=== PATIENT | female | born 1980 | race Caucasian/White ===

== ENCOUNTER 2024-03-24 18:48 | Observation (INO) ==
--- NOTE | 2024-03-24 19:15 | Emergency Department Note ---
History of Present Illness General Chief complaint: Chest Pain Time Seen by Provider: 03/24/24 18:56 Source: patient, family (Colleague who is at the bedside), RN notes reviewed and old records reviewed (09/10/22-history and physical from orthopedics visit) Mode of arrival: ambulatory Limitations: no limitations History of Present Illness This patient is a 43-year-old female who was brought in by ambulance after having chest pain. She noticed a rash on her upper chest and neck an hour or 2 ago and she was going to get it checked out at work when she started having chest tightness between 430 and 5. Its about 5 out of 10 there is no radiation to arm neck or back she does have a headache as well . no nausea or vomiting .she denies any swelling mouth lips or tongue. no sore throat. No difficulty speaking or swallowing. No trauma or injury. She is on no medications there has been no [id number] medications or any other known allergens today. She says she cannot take Claritin and Zyrtec but she is okay with Benadryl but it just makes her sleepy but she does not have allergic reaction to that. No fall or trauma Home Medications Medication Instructions Recorded Confirmed Type No Known Home Medications 03/24/24 03/24/24 History Allergies Allergy/AdvReac Type Severity Reaction Status Date / Time cetirizine [From Zyrtec] Allergy Intermediate Rash Verified 03/24/24 21:22 latex Allergy Intermediate Rash Verified 03/24/24 21:22 loratadine [From Claritin-D] Allergy Intermediate Rash Verified 03/24/24 21:22 pseudoephedrine Allergy Intermediate Rash Verified 03/24/24 21:22 [From Claritin-D] Past Med/Surg History Medical History Slow to wake up after anesthesia Hypertension Asthma rare res inh use Surgical History History of hysterectomy Hx of breast reduction, elective History of colonoscopy History of cholecystectomy [place] teeth extracted History of tonsillectomy History of endoscopic sinus surgery Social History Smoking Status: Former smoker Cigarettes Per Day: does not use daily; Second Hand Exposure: No; Do You Dip or Chew Tobacco: No; Hx Alcohol Use: Yes Alcohol type: beer, wine and hard liquor Hx Substance Use: No Preferred Language: Nepali Communication Ability: Effective Professional Nursing Assistant Required: No Beliefs That Will Affect Care: None Current Living Situation: Family Feels Safe at Home: Yes Assistive Devices: Contacts and Glasses Immunizations: Past medical historyshe does have a history of hypertension. She is on no medications. She says they took her off 2 years ago because her blood pressure was getting too low. Review of Systems A total of 10 systems reviewed and were otherwise negative Physical Exam Vital Signs Vital Signs - 24 hr 03/24/24 18:53 03/24/24 18:56 03/24/24 19:05 Temperature Temperature Source Pulse Rate 75 68 Pulse Rate from SpO2 Sensor Pulse Rhythm Respiratory Rate 18 Respiratory Effort / Characteristics Short of Breath Blood Pressure 253/159 H Blood Pressure Mean 190 Pulse Oximetry 98 Oxygen Delivery Method Room Air Sepsis Recent Fever Within 48 Hours Sepsis New/Unexplained Change in Mental Status Sepsis Action Taken by Nursing 03/24/24 19:05 03/24/24 19:07 03/24/24 19:09 Temperature 36.5 C Temperature Source Oral Pulse Rate 65 74 68 Pulse Rate from SpO2 Sensor 71 66 Pulse Rhythm Respiratory Rate 15 17 15 Respiratory Effort / Characteristics Blood Pressure 253/149 H 99/61 L Blood Pressure Mean 183 73 Pulse Oximetry 96 97 96 Oxygen Delivery Method Room Air Room Air Room Air Sepsis Recent Fever Within 48 Hours No Sepsis New/Unexplained Change in Mental Status No Sepsis Action Taken by Nursing No Action Required 03/24/24 19:13 03/24/24 19:35 03/24/24 20:00 Temperature Temperature Source Pulse Rate 82 61 64 Pulse Rate from SpO2 Sensor 64 Pulse Rhythm Regular Respiratory Rate 20 18 13 Respiratory Effort / Characteristics Blood Pressure 209/129 H 233/122 H Blood Pressure Mean 155 159 Pulse Oximetry 98 98 97 Oxygen Delivery Method Room Air Room Air Room Air Sepsis Recent Fever Within 48 Hours Sepsis New/Unexplained Change in Mental Status Sepsis Action Taken by Nursing 03/24/24 20:03 03/24/24 20:38 03/24/24 21:18 Temperature Temperature Source Pulse Rate 65 64 64 Pulse Rate from SpO2 Sensor 64 64 62 Pulse Rhythm Respiratory Rate 18 20 20 Respiratory Effort / Characteristics Blood Pressure 213/146 H Blood Pressure Mean 168 Pulse Oximetry 99 98 93 Oxygen Delivery Method Room Air Sepsis Recent Fever Within 48 Hours Sepsis New/Unexplained Change in Mental Status Sepsis Action Taken by Nursing 03/24/24 21:30 03/24/24 22:07 03/24/24 22:30 Temperature Temperature Source Pulse Rate 75 60 62 Pulse Rate from SpO2 Sensor 64 64 Pulse Rhythm Respiratory Rate 17 18 17 Respiratory Effort / Characteristics Blood Pressure 172/133 H 206/135 H 187/132 H Blood Pressure Mean 146 158 150 Pulse Oximetry 96 96 95 Oxygen Delivery Method Room Air Room Air Room Air Sepsis Recent Fever Within 48 Hours Sepsis New/Unexplained Change in Mental Status Sepsis Action Taken by Nursing 03/24/24 22:53 03/24/24 23:00 03/25/24 00:30 Temperature Temperature Source Pulse Rate 64 60 68 Pulse Rate from SpO2 Sensor 60 Pulse Rhythm Respiratory Rate 18 20 Respiratory Effort / Characteristics Blood Pressure 191/127 H 217/120 H Blood Pressure Mean 148 152 Pulse Oximetry 96 98 Oxygen Delivery Method Room Air Room Air Sepsis Recent Fever Within 48 Hours Sepsis New/Unexplained Change in Mental Status Sepsis Action Taken by Nursing General: Well developed well nourished middle-age female who appears in no acute distress, breathing comfortably on room air. Normal speech not muffled. HEENT: Normal cephalic atraumatic. Pupils are equal round and reactive to light. Extraocular movements are intact. Oropharynx is pink with moist mucous membranes. No swelling of the mouth lips or tongue. No swelling the mouth lips or tongue. Posterior oropharynx is wide open. No stridor. No drooling. Neck: Supple with a midline trachea. No meningeal signs or stiffness, no JVD or bruits. No Stridor. Chest: Clear to auscultation bilaterally. No wheezes or rhonchi. No increased work of breathing. Heart: Regular rate and rhythm without murmurs or gallops. Abdomen: Soft nontender, nondistended without rebound guarding or rigidity. Extremities: No cyanosis clubbing or edema. No calf tenderness or assymetry Spine/Back. Non tender to palpation. No CVA tenderness Skin: Good turgor. She has a diffuse garcia. She has some red circular areas in her upper chest and around her neck. There are none on her back or abdomen or face. They appear to be itching Neurologic exam: Cranial nerves two through 12 are intact. Motor and sensation are intact and symmetrical throughout. General: Well developed well nourished in no acute distress, breathing comfortably on room air. Normal speech Course Administered Medications Lactated Ringer's (Lr) 1,000 mls @ 50 mls/hr IV .Q20H ONE Stop: 03/25/24 20:15 Last Admin: 03/25/24 00:22 Dose: 50 mls/hr Documented By: DAVID Discontinued Medications Acetaminophen (Acetaminophen 325 Mg Tab) 650 mg PO NOW STA Stop: 03/24/24 20:48 Last Admin: 03/24/24 21:02 Dose: 650 mg Documented By: DAVID Diphenhydramine HCl (Diphenhydramine 50 Mg/Ml Vial) 12.5 mg IV NOW STA Stop: 03/24/24 19:09 Last Admin: 03/24/24 19:35 Dose: 12.5 mg Documented By: DAVID Diphenhydramine HCl (Diphenhydramine 50 Mg/Ml Vial) 25 mg IV NOW STA Stop: 03/24/24 23:27 Last Admin: 03/24/24 23:34 Dose: 25 mg Documented By: DAVID Ioversol (Optiray 320 125ml) 118 ml IV ONCE ONE Stop: 03/24/24 20:31 Last Admin: 03/24/24 20:31 Dose: 118 ml Documented By: ADRIANNA Lisinopril (Lisinopril 5 Mg Tab) 5 mg PO NOW ONE Stop: 03/24/24 21:59 Last Admin: 03/24/24 22:06 Dose: 5 mg Documented By: DAVID Potassium Chloride (Potassium Chloride Crtab 20 Meq Tabcr) 20 meq PO NOW STA Stop: 03/24/24 21:53 Last Admin: 03/24/24 22:06 Dose: 20 meq Documented By: DAVID Medical Decision Making Differential Diagnosis Acute coronary syndrome, hypertensive emergency/crisis, aortic pathology, allergic reaction, anxiety, GERD, infection, electrolyte or metabolic abnormality Medical Records Attestation: I reviewed the patient's medical records. Home Medications Current Medication List: was personally reviewed by me Laboratory Data Attestation: I reviewed the patient's lab results. 03/24/24 19:20 03/24/24 19:20 Lab Results 03/24/24 03/24/24 Range/Units 19:20 21:44 WBC 8.84 (4.8-10.8) K/ul RBC 4.66 (4.20-5.40) M/uL Hgb 13.4 (12.0-16.0) g/dl Hct 39.3 (37.0-47.0) % MCV 84.3 (80.0-100.0) fL MCH 28.8 (25.0-34.0) pg MCHC 34.1 (32.0-36.0) g/dL RDW Std Deviation 39.1 (36.4-46.3) fL RDW Coeff of Bobby 12.8 (11.5-14.5) % Plt Count 247 (130-400) K/uL MPV 10.8 (9.4-12.4) fL Immature Gran % (Auto) 0.5 % Neut % (Auto) 59.1 % Lymph % (Auto) 32.1 % [place] % (Auto) 6.8 % Eos % (Auto) 1.0 % Baso % (Auto) 0.5 % Neut # (Auto) 5.23 (1.40-6.50) K/uL Lymph # (Auto) 2.84 (1.20-3.40) K/uL [place] # (Auto) 0.60 H (0.11-0.59) K/uL Eos # (Auto) 0.09 (0.00-0.50) K/uL Baso # (Auto) 0.04 (0.00-0.20) K/uL Immature Gran # (Auto) 0.04 (0.01-0.20) K/uL Sodium 140 (136-145) mmol/L Potassium 3.4 L (3.5-5.1) mmol/L Chloride 106 (98-107) mmol/L Carbon Dioxide 27 (21-32) mmol/L Anion Gap 7 (3-11) BUN 14 (6-23) mg/dl Creatinine 0.64 (0.6-1.2) mg/dl Est Cr Clr Drug Dosing Not Reportable Est GFR ( Amer) 126.7 ml/min Est GFR (Non-Af Amer) 109.3 ml/min BUN/Creatinine Ratio 21.9 H (10-20) Glucose 93 (70-99(Fasting)) mg/dl Calcium 9.4 (8.6-10.3) mg/dl Total Bilirubin 0.5 (0.2-1.0) mg/dl AST 14 (13-39) U/L ALT 16 (7-52) U/L Alkaline Phosphatase 62 (34-104) U/L Troponin I High Sens 3.6 4.1 (0-14) pg/ml Total Protein 7.2 (6.0-8.3) gm/dl Albumin 4.3 (3.4-5.0) gm/dl Globulin 2.9 (2.5-4.0) gm/dl Albumin/Globulin Ratio 1.5 (0.9-2) Lipase 33 (11-82) U/L HCG, Qual Negative (Negative) Imaging Data Attestation: I personally reviewed and interpreted this imaging study as follows: My Impression: Chest x-rayno acute infiltrate, failure, pneumothorax seen CT angiography of the chestI do not see any large or central PE Radiologist's Impression: Chest CTA 03/24/24 19:58 Exam(s): CTA CHEST W/WO Contrast IV Amt: 118 ml optiray 320 EXAM: CT Angiography Chest Without and With Intravenous Contrast CLINICAL HISTORY: Reason for exam: chest pain, htn. TECHNIQUE: Axial computed tomographic angiography images of the chest without and with intravenous contrast. CTDI is 20.66 mGy and DLP is 1286.71 mGy-cm. Automated exposure control was utilized for the study. A dose lowering technique was utilized adhering to the principles of ALARA. MIP reconstructed images were created and reviewed. CONTRAST: Patient received 118 ml optiray 320 of IV contrast COMPARISON: No relevant prior studies available. FINDINGS: Pulmonary arteries: Unremarkable. No pulmonary embolism. Aorta: No acute findings. No thoracic aortic aneurysm. Lungs: Unremarkable. No mass. No consolidation. Pleural space: Unremarkable. No significant effusion. No pneumothorax. Heart: Unremarkable. No cardiomegaly. No significant pericardial effusion. No evidence of RV dysfunction. Bones/joints: No acute fracture. No dislocation. Soft tissues: Unremarkable. Lymph nodes: Unremarkable. No enlarged lymph nodes. IMPRESSION: Normal chest CTA. No pulmonary embolism. No evidence of thoracic aortic aneurysm or dissection. Electronically signed by: Martin Meyer MD 03/24/24 21:29 PM ECG Data Attestation: I personally reviewed and interpreted this ECG as follows: Indication: + chest pain Rate (beats per minute): 76 Rhythm: + normal sinus ECG Intervals/blocks: + Normal QRS, + Normal QT and + Normal RI ECG Klemme: + Normal ECG ST segments: + Nonspecific ST abnormalities ECG Findings: no PACs or no PVCs Comparison ECG Date: no prior available MDM Narrative This patient comes in as described above. The nurse came and got me to see her because she had elevated blood pressure. She has chest pain. Her initial EKG does not show any definite ischemia or arrhythmia. She does have a rash on her chest but no evidence of any airway involvement or compromise or any systemic allergic reaction. In fact her blood pressure is extremely elevated initially. With her rash I did talk about giving her an antihistamine she tells me she is okay with Benadryl just makes her very sleepy so I just ordered a very small dose of 12.5 mg IV just to help with the allergic reaction and this may also help her blood pressure as well, if there is an anxiety or stress component. Full cardiac workup was obtained she was placed on a sports lawyer in room C6. EKG was obtained as well as chest x-ray multiple blood testing. She was reassessed frequently. When I talked to the nurse she said that her blood pressure was high and then she will get a low reading intermittently. The patient seems to doing much better. She is no evidence of any airway compromise or anaphylaxis. EKG shows no ischemic changes troponin x 2 was negative done 2 hours apart she is noticing of electrolyte or metabolic abnormalities. She has remained stable, I did a CT angiography given her elevated blood pressure and there is no evidence to suggest aortic dissection. Her blood pressure seems to be very labile and will need to be further addressed as an inpatient she is doing much better she did have a headache at 1 point was given Tylenol but has a normal neurologic exam is doing well. I discussed the case at length with Dr. Mujica and he will be admitting/observing her Continuous cardiac monitoring: Orders placed in EMR for continuous cardiac monitoring: Upon my evaluation patient is to be normal sinus rhythm rate 75 Impression & Plan Chest pain, Rash, Hypertension, Not currently Discharge Plan Visit Data Chief Complaint: Chest Pain ED Provider: Tariq Palacio Discharge Problem: Chest pain, Rash, Hypertension, Not currently Forms Stand Alone Forms: My [facility] Prescriptions Prescriptions: No Action No Known Home Medications Referrals Referrals: SELF,REFERRED [Non-Staff] - Discharge Problem: Chest pain Qualifiers: Chest pain type: unspecified Qualified Code(s): R07.9 - Chest pain, unspecified Hypertension Qualifiers: Hypertension type: unspecified Qualified Code(s): I10 - Essential (primary) hypertension
[2024-03-24] MEDS: diphenhydrAMINE 50 MG/ML VIAL IV STA ×2 (19:35→23:34)
[2024-03-24 19:42] LABS: Basophils # (auto) 0.04 K/uL (0.00-0.20); Basophils % (auto) 0.5 %; Eosinophils # (auto) 0.09 K/uL (0.00-0.50); Hematocrit (blood only) 39.3 % (37.0-47.0); Hemoglobin 13.4 g/dl (12.0-16.0); Immature Granulocytes # (auto) 0.04 K/uL (0.01-0.20); Immature Granulocytes % (auto) 0.5 %; Lymphocytes # (auto) 2.84 K/uL (1.20-3.40); Lymphocytes % (auto) 32.1 %; Mean Corpuscular Hemoglobin 28.8 pg (25.0-34.0); Mean Corpuscular Hgb Conc 34.1 g/dL (32.0-36.0); Mean Corpuscular Volume 84.3 fL (80.0-100.0); Mean Platelet Volume 10.8 fL (9.4-12.4); Monocytes % (auto) 6.8 %; Neutrophils # (auto) 5.23 K/uL (1.40-6.50); Neutrophils % (auto) 59.1 %; Platelet Count 247 K/uL (130-400); RDW Coefficient of Variation 12.8 % (11.5-14.5); RDW Standard Deviation 39.1 fL (36.4-46.3); Red Blood Count 4.66 M/uL (4.20-5.40); White Blood Count 8.84 K/ul (4.8-10.8)
[2024-03-24 19:52] LABS: Pregnancy Test, Serum Negative (Negative)
[2024-03-24 20:01] LABS: Alanine Aminotransferase 16 U/L (7-52); Albumin Globulin Ratio 1.5 (0.9-2); Albumin Level 4.3 gm/dl (3.4-5.0); Alkaline Phosphatase 62 U/L (34-104); Anion Gap 7 (3-11); Aspartate Aminotransferase 14 U/L (13-39); BUN Creatinine Ratio 21.9 (10-20); Bilirubin,Total 0.5 mg/dl (0.2-1.0); Blood Urea Nitrogen 14 mg/dl (6-23); Calcium 9.4 mg/dl (8.6-10.3); Carbon Dioxide 27 mmol/L (21-32); Chloride 106 mmol/L (98-107); Est GFR (African American) 126.7 ml/min; Est GFR (Non-African American) 109.3 ml/min; Globulin 2.9 gm/dl (2.5-4.0); Glucose 93 mg/dl (70-99(Fasting)); Lipase 33 U/L (11-82); Potassium 3.4 mmol/L (3.5-5.1); Sodium 140 mmol/L (136-145); Total Protein 7.2 gm/dl (6.0-8.3)
[2024-03-24 20:06] LABS: Troponin I High Sensitivity 3.6 pg/ml (0-14)
[2024-03-24] MEDS: OPTIRAY 320 125ml IV ONE (20:31)
[2024-03-24] MEDS: ACETAMINOPHEN 325 MG TAB PO STA (21:02)
--- NOTE | 2024-03-24 21:30 | CT Scan Report ---
Exam(s): CTA CHEST W/WO Contrast IV Amt: 118 ml optiray 320 EXAM: CT Angiography Chest Without and With Intravenous Contrast CLINICAL HISTORY: Reason for exam: chest pain, htn. TECHNIQUE: Axial computed tomographic angiography images of the chest without and with intravenous contrast. CTDI is 20.66 mGy and DLP is 1286.71 mGy-cm. Automated exposure control was utilized for the study. A dose lowering technique was utilized adhering to the principles of ALARA. MIP reconstructed images were created and reviewed. CONTRAST: Patient received 118 ml optiray 320 of IV contrast COMPARISON: No relevant prior studies available. FINDINGS: Pulmonary arteries: Unremarkable. No pulmonary embolism. Aorta: No acute findings. No thoracic aortic aneurysm. Lungs: Unremarkable. No mass. No consolidation. Pleural space: Unremarkable. No significant effusion. No pneumothorax. Heart: Unremarkable. No cardiomegaly. No significant pericardial effusion. No evidence of RV dysfunction. Bones/joints: No acute fracture. No dislocation. Soft tissues: Unremarkable. Lymph nodes: Unremarkable. No enlarged lymph nodes. IMPRESSION: Normal chest CTA. No pulmonary embolism. No evidence of thoracic aortic aneurysm or dissection. Electronically signed by: Martin Meyer MD 03/24/24 21:29 PM
[2024-03-24] MEDS: POTASSIUM CHLORIDE CRTAB 20 MEQ TABCR PO STA (22:06)
[2024-03-24] MEDS: lisinopril 5 MG TAB PO ONE (22:06)
--- NOTE | 2024-03-24 23:51 | History & Physical Report ---
Date of Service March 24, 2024 Assessment & Plan (1) Hypertensive crisis: Plan: Precipitated by hypersensitivity reaction to unidentified allergen History of medical noncompliance as per records Untreated CRIS possibly contributory. Mild CRIS on outpatient sleep study for which a CPAP titration study from 2017 Sleep medicine note. Patient claims to be unaware of diagnosis and recommendations. hyperlipidemia, not on maintenance medications bronchial asthma, not in acute exacerbation hepatic steatosis anxiety/mood disorder, stable off maintenance medications past tobacco abuse OBS PCU Resume home lisinopril Outpatient sleep medicine follow-up Baseline TTE Re: Chest pain DVT prophylaxis. Lovenox subcu Full code Text document was generated using [employer] voice recognition software. It may contain grammatical or spelling errors. Kindly contact undersigned for clarification of any documentation item in question. History of Present Illness Chief Complaint: Chest pain Primary Care Provider: Dr. Joy History obtained from patient, family, and records. Medical history significant for HTN, hyperlipidemia, bronchial asthma, hepatic steatosis, CRIS as per records, anxiety/mood disorder, past tobacco abuse, medical noncompliance as per records. 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 Not sure about precipitant of allergic reaction. Patient experience achy chest heaviness with shortness of breath at the [facility]. SBP noted to be 200s. Denies headache, cough, nausea, vomiting symptoms. Mild abdominal discomfort from being hungry as per patient. Patient denies unusual stress at home. Patient claims she was told by PCP to stop lisinopril about 2 years ago because her blood pressure was low as 90-100. Symptoms relieved by aspirin and nitroglycerin administration by EMS. Medical History as above Surgical History : Hysterectomy, dental surgery, breast reduction Family History : Hypertension Personal/Social history : Past tobacco abuse, no EtOH intake, program officer Allergies Allergy/AdvReac Type Severity Reaction Status Date / Time cetirizine [From Zyrtec] Allergy Intermediate Rash Verified 03/24/24 21:22 latex Allergy Intermediate Rash Verified 03/24/24 21:22 loratadine [From Claritin-D] Allergy Intermediate Rash Verified 03/24/24 21:22 pseudoephedrine Allergy Intermediate Rash Verified 03/24/24 21:22 [From Claritin-D] Home Medications Medication Instructions Recorded Confirmed Type No Known Home Medications 03/24/24 03/24/24 History Past Med/Surg History Medical History Slow to wake up after anesthesia Hypertension Asthma rare res inh use Surgical History History of hysterectomy Hx of breast reduction, elective History of colonoscopy History of cholecystectomy [place] teeth extracted History of tonsillectomy History of endoscopic sinus surgery Social History Smoking Status: Former smoker Tobacco Type: Cigarettes Cigarettes Per Day: does not use daily; Second Hand Exposure: No; Do You Dip or Chew Tobacco: No; Hx Alcohol Use: No Hx Substance Use: No Preferred Language: Sri Lankan Communication Ability: Effective Spraying Machine Operator Required: No Beliefs That Will Affect Care: None Current Living Situation: Alone Feels Safe at Home: Yes Safety Concerns: Feels Safe At This Time Assistive Devices: None Review of Systems Review of Systems: As per HPI, all other systems reviewed and negative Physical Exam Physical Exam: GENERAL: Comfortable, obese, slightly anxious, no respiratory distress SKIN: Normal color, warm HEENT: [place] palpebral conjunctivae, no ptosis, dry buccal mucosa NECK : Supple, short neck, no tenderness CHEST : CTA, no tenderness HEART : RRR, no obvious murmurs ABDOMEN: Some distention, nontender EXTREMITIES : Minimal LE swelling, no LE tenderness, no other conspicuous deformities noted NEUROLOGIC : Coherent, no facial asymmetry, no other gross focality Results & Data Results & Data Vital Signs (Past 12 Hours) Vital Signs Temp Pulse Resp BP Pulse Ox O2 Del Method 03/24/24 22:53 64 03/24/24 22:07 60 18 206/135 H 96 Room Air 03/24/24 21:30 75 17 172/133 H 96 Room Air 03/24/24 21:18 64 20 213/146 H 93 Room Air 03/24/24 20:38 64 20 98 03/24/24 20:03 65 18 99 03/24/24 20:00 64 13 233/122 H 97 Room Air 03/24/24 19:35 61 18 209/129 H 98 Room Air 03/24/24 19:13 82 20 98 Room Air 03/24/24 19:09 68 15 96 Room Air 03/24/24 19:07 74 17 99/61 L 97 Room Air 03/24/24 19:05 36.5 C 65 15 253/149 H 96 Room Air 03/24/24 18:56 68 03/24/24 18:53 75 18 253/159 H 98 Room Air Laboratory Results Laboratory Results WBC 8.84 K/ul (4.8-10.8) 03/24/24 19:20 RBC 4.66 M/uL (4.20-5.40) 03/24/24 19:20 Hgb 13.4 g/dl (12.0-16.0) 03/24/24 19:20 Hct 39.3 % (37.0-47.0) 03/24/24 19:20 MCV 84.3 fL (80.0-100.0) 03/24/24 19:20 MCH 28.8 pg (25.0-34.0) 03/24/24 19:20 MCHC 34.1 g/dL (32.0-36.0) 03/24/24 19:20 RDW Std Deviation 39.1 fL (36.4-46.3) 03/24/24 19:20 RDW Coeff of Bobby 12.8 % (11.5-14.5) 03/24/24 19:20 Plt Count 247 K/uL (130-400) 03/24/24 19:20 MPV 10.8 fL (9.4-12.4) 03/24/24 19:20 Immature Gran % (Auto) 0.5 % 03/24/24 19:20 Neut % (Auto) 59.1 % 03/24/24 19:20 Lymph % (Auto) 32.1 % 03/24/24 19:20 [place] % (Auto) 6.8 % 03/24/24 19:20 Eos % (Auto) 1.0 % 03/24/24 19:20 Baso % (Auto) 0.5 % 03/24/24 19:20 Neut # (Auto) 5.23 K/uL (1.40-6.50) 03/24/24 19:20 Lymph # (Auto) 2.84 K/uL (1.20-3.40) 03/24/24 19:20 [place] # (Auto) 0.60 K/uL (0.11-0.59) H 03/24/24 19:20 Eos # (Auto) 0.09 K/uL (0.00-0.50) 03/24/24 19:20 Baso # (Auto) 0.04 K/uL (0.00-0.20) 03/24/24 19:20 Immature Gran # (Auto) 0.04 K/uL (0.01-0.20) 03/24/24 19:20 Sodium 140 mmol/L (136-145) 03/24/24 19:20 Potassium 3.4 mmol/L (3.5-5.1) L 03/24/24 19:20 Chloride 106 mmol/L (98-107) 03/24/24 19:20 Carbon Dioxide 27 mmol/L (21-32) 03/24/24 19:20 Anion Gap 7 (3-11) 03/24/24 19:20 BUN 14 mg/dl (6-23) 03/24/24 19:20 Creatinine 0.64 mg/dl (0.6-1.2) 03/24/24 19:20 Est Cr Clr Drug Dosing Not Reportable 03/24/24 19:20 Est GFR ( Amer) 126.7 ml/min 03/24/24 19:20 Est GFR (Non-Af Amer) 109.3 ml/min 03/24/24 19:20 BUN/Creatinine Ratio 21.9 (10-20) H 03/24/24 19:20 Glucose 93 mg/dl (70-99(Fasting)) 03/24/24 19:20 Calcium 9.4 mg/dl (8.6-10.3) 03/24/24 19:20 Total Bilirubin 0.5 mg/dl (0.2-1.0) 03/24/24 19:20 AST 14 U/L (13-39) 03/24/24 19:20 ALT 16 U/L (7-52) 03/24/24 19:20 Alkaline Phosphatase 62 U/L (34-104) 03/24/24 19:20 Troponin I High Sens 4.1 pg/ml (0-14) 03/24/24 21:44 Total Protein 7.2 gm/dl (6.0-8.3) 03/24/24 19:20 Albumin 4.3 gm/dl (3.4-5.0) 03/24/24 19:20 Globulin 2.9 gm/dl (2.5-4.0) 03/24/24 19:20 Albumin/Globulin Ratio 1.5 (0.9-2) 03/24/24 19:20 Lipase 33 U/L (11-82) 03/24/24 19:20 HCG, Qual Negative (Negative) 03/24/24 19:20 Impressions Chest CTA 03/24/24 19:58 Exam(s): CTA CHEST W/WO Contrast IV Amt: 118 ml optiray 320 EXAM: CT Angiography Chest Without and With Intravenous Contrast CLINICAL HISTORY: Reason for exam: chest pain, htn. TECHNIQUE: Axial computed tomographic angiography images of the chest without and with intravenous contrast. CTDI is 20.66 mGy and DLP is 1286.71 mGy-cm. Automated exposure control was utilized for the study. A dose lowering technique was utilized adhering to the principles of ALARA. MIP reconstructed images were created and reviewed. CONTRAST: Patient received 118 ml optiray 320 of IV contrast COMPARISON: No relevant prior studies available. FINDINGS: Pulmonary arteries: Unremarkable. No pulmonary embolism. Aorta: No acute findings. No thoracic aortic aneurysm. Lungs: Unremarkable. No mass. No consolidation. Pleural space: Unremarkable. No significant effusion. No pneumothorax. Heart: Unremarkable. No cardiomegaly. No significant pericardial effusion. No evidence of RV dysfunction. Bones/joints: No acute fracture. No dislocation. Soft tissues: Unremarkable. Lymph nodes: Unremarkable. No enlarged lymph nodes. IMPRESSION: Normal chest CTA. No pulmonary embolism. No evidence of thoracic aortic aneurysm or dissection. Electronically signed by: Martin Meyer MD 03/24/24 21:29 PM Diagnostic Findings EKG as per my interpretation :Rate 70, NSR, normal axis, nonspecific T wave abnormalities
[2024-03-25] MEDS ORDERED: PROMETHAZINE HCL 12.5 MG in SODIUM CHLORIDE 0.9% 50 ML IV PRN (00:14)
[2024-03-25] MEDS ORDERED: diphenhydrAMINE 2%/ZINC 0.1% CREAM 28.4GM TUBE EXT PRN (00:14)
[2024-03-25] MEDS: LACTATED RINGER'S 1,000 ML IV ONE (00:22)
[2024-03-25] MEDS ORDERED: oxyCODONE HCL IR 5 MG TAB (IMMEDIATE RELEASE) PO PRN (00:50)
[2024-03-25] MEDS ORDERED: MoRPHine SULFATE 4 MG/ML 1 ML CARP\\VIAL IV PRN (00:50)
[2024-03-25] MEDS ORDERED: NITROGLYCERIN SL 0.4 MG/TAB TAB SL PRN (00:50)
[2024-03-25] MEDS: hydrALAZINE HCL 20 MG/ML VIAL IV STA (01:16)
[2024-03-25] MEDS: lisinopril 5 MG TAB PO ONE (01:17)
[2024-03-25] MEDS ORDERED: diphenhydrAMINE Capsule 25 MG CAP PO PRN (02:42)
[2024-03-25 04:29] LABS: Basophils # (auto) 0.05 K/uL (0.00-0.20); Basophils % (auto) 0.6 %; Eosinophils % (auto) 1.2 %; Hematocrit (blood only) 40.4 % (37.0-47.0); Hemoglobin 13.3 g/dl (12.0-16.0); Immature Granulocytes # (auto) 0.02 K/uL (0.01-0.20); Immature Granulocytes % (auto) 0.2 %; Lymphocytes # (auto) 1.99 K/uL (1.20-3.40); Lymphocytes % (auto) 24.4 %; Mean Corpuscular Hemoglobin 28.6 pg (25.0-34.0); Mean Corpuscular Hgb Conc 32.9 g/dL (32.0-36.0); Mean Corpuscular Volume 86.9 fL (80.0-100.0); Mean Platelet Volume 10.7 fL (9.4-12.4); Monocytes % (auto) 8.6 %; Neutrophils # (auto) 5.28 K/uL (1.40-6.50); Platelet Count 209 K/uL (130-400); RDW Coefficient of Variation 12.9 % (11.5-14.5); RDW Standard Deviation 40.4 fL (36.4-46.3); Red Blood Count 4.65 M/uL (4.20-5.40); White Blood Count 8.14 K/ul (4.8-10.8)
[2024-03-25 04:36] LABS: BUN Creatinine Ratio 16.5 (10-20); Calcium 8.7 mg/dl (8.6-10.3); Chol HDL Ratio 3.4 (0-5); Creatinine Clr Calc Pharmacy 99.1 ml/min; Est GFR (African American) 106.3 ml/min; Est GFR (Non-African American) 91.7 ml/min; Partial Thromboplastin Time 27 Seconds (21-31); Potassium 3.3 mmol/L (3.5-5.1)
[2024-03-25 04:42] LABS: Troponin I High Sensitivity 3.7 pg/ml (0-14)
[2024-03-25] MEDS: POTASSIUM CHLORIDE CRTAB 20 MEQ TABCR PO STA (05:34)
--- NOTE | 2024-03-25 07:26 | XRay Report ---
XR chest 1V portable HISTORY: 43 years-old Female Chest pain, nonspecific COMPARISON: CTA chest of same day TECHNIQUE: AP view of the chest FINDINGS: Cardiomediastinal and hilar silhouettes are within normal limits. There is no pneumothorax, pleural e ffusion, airspace consolidation or pulmonary edema. The bones of the chest appear grossly intact. IMPRESSION: No acute process. ACT 112: Negative or not required by law. The above report was generated using voice recognition software. It may contain grammatical, syntax o r spelling errors. Electronically signed by: George Sol M.D. 03/25/2024 7:25 AM
[2024-03-25 09:43] LABS: Amphetamines+Metham, Urine Neg (Neg); Barbiturates, Urine Neg (Neg); Benzodiazepine, Urine Neg (Neg); Cocaine, Urine Neg (Neg); MDMA (Ecstacy), Urine Neg (Neg); Marijuana, Urine Neg (Neg); Methadone, Urine Neg (Neg); Opiate, Urine Neg (Neg); Phencyclidine, Urine Neg (Neg)
[2024-03-25 09:46] LABS: Appearance Urine Clear (Clear); Bacteria Urine Automated None Seen (None Seen); Bilirubin Urine Negative (Negative); Blood Urine Negative (Negative); Cast Urine Automated 0-2 /lpf (0-2); Color Urine Yellow; Epithelial Cell Urine Auto 0-2 /hpf (0-2); Glucose Urine UA Negative (Negative); Ketones Urine Negative (Negative); Leukocyte Esterase Urine 1+ (Negative); Nitrite Urine Negative (Negative); Protein Urine Negative (Negative); RBC Urine Automated 0-2 /hpf (0-2); Specific Gravity Urine 1.038 (1.000-1.030); Urobilinogen Urine Negative (Negative); WBC Urine Automated 0-5 /hpf (0-5); pH Urine 6.5 (4.5-7.5)
[2024-03-25] MEDS: hydroCHLOROthiazide 25 MG TAB PO STA (11:30)
--- NOTE | 2024-03-25 11:43 | Hospitalist Progress Note ---
Date of Service March 25, 2024 Assessment & Plan (1) Hypertensive crisis: (2) Rash: (3) Chest pain: Plan Pt is a 43yoF with PMHx significant for HTN, hyperlipidemia, bronchial asthma, hepatic steatosis, CRIS as per records, anxiety/mood disorder, past tobacco abuse, medical noncompliance as per records who presented from her job at a [employer] facility with concern for hypertensive urgency. Hypertensive Urgency BP as high as 253/159 on arrival EKG with NSR Trop wnl Echo pending Precipitated by hypersensitivity reaction to unidentified allergen (pt presented with erythema of chest and neck), possible stressor component Untreated CRIS possibly contributory Mild CRIS on outpatient sleep study for which a CPAP titration study from 2017 Sleep medicine note. Per EPIC, pt previously on Lisinopril 20mg Has received IV hydralazine 10mg, po lisinopril 10mg and HCTZ 25mg with BP still elevated at 142/102 Continue with lisinopril 10mg BID while in the hospital (total dose 20mg) Will add amlodipine 5mg qhs to start tonight, HCTZ 25mg qAM Consider discharge with lisinopril/HCTZ 20mg/25mg +/- amlodipine 5mg depending on BP response Continue to monitor Allergic Reaction hypersensitivity reaction to unidentified allergen (pt presented with erythema of chest and neck) Received Benadryl Continue with Benadryl prn hyperlipidemia not on maintenance medications Lipid panel noting elevated triglycerides Consider starting rx pending further discussion with pt Hypokalemia Replete as needed Hyperglycemia Glucose levels elevated AM [id number] pending bronchial asthma not in acute exacerbation anxiety/mood disorder stable off maintenance medications Continue to monitor Diet: HH DVT prophylaxis: Lovenox subcu Dispo: Home once medically stable Admission and Anticipated Discharge Date Admission Date: March 24, 2024 Subjective pt was seen while down in the ED. Denied chest pain, SOB, VICTORIA at that time Review of Systems Review of Systems: All systems reviewed & are unremarkable except as noted in Subjective Physical Exam Physical Exam: General: Alert, oriented. No acute distress Skin: No noted rashes or bruises Psych: Appropriate mood and affect Neuro: No gross deficits while laying in bed HEENT: NC/AT CV: RRR Resp: no increased effort of breathing Abdomen: Soft, nontender, nondistended Extremities: No edema in lower extremities bilaterally. Results & Data Results & Data Vital Signs (Past 12 Hours) Vital Signs Pulse Pulse Resp BP BP Pulse Ox Pulse Ox 03/25/24 11:30 77 17 137/101 H 98 03/25/24 08:50 98 03/25/24 07:47 60 18 149/102 H 98 03/25/24 07:33 55 L 03/25/24 05:00 52 L 18 130/81 100 03/25/24 05:00 66 18 130/81 94 03/25/24 03:00 71 18 127/89 95 03/25/24 02:01 63 18 140/81 95 03/25/24 01:31 76 18 142/97 H 98 03/25/24 01:20 67 18 150/106 H 98 03/25/24 00:30 68 20 217/120 H 98 O2 Del Method O2 Del Method 03/25/24 11:30 Room Air 03/25/24 08:50 Room Air 03/25/24 07:47 Room Air 03/25/24 07:33 03/25/24 05:00 Room Air 03/25/24 05:00 Room Air 03/25/24 03:00 Room Air 03/25/24 02:01 Room Air 03/25/24 01:31 Room Air 03/25/24 01:20 Room Air 03/25/24 00:30 Room Air (3) Chest pain Chest pain type: unspecified Qualified Code(s): R07.9 - Chest pain, unspecified
[2024-03-25] MEDS: ACETAMINOPHEN 500 MG TAB PO PRN (17:21)
[2024-03-25] MEDS: ENOXAPARIN INJ 40 MG/0.4 ML SYR SQ SCH (17:35)
[2024-03-25] MEDS: amLODIPine BESYLATE 5 MG TAB PO SCH (19:46)
[2024-03-25] MEDS: lisinopril 10 MG TAB PO SCH (19:47)
[2024-03-25] MEDS: POTASSIUM CHLORIDE 10 MEQ TABCR PO SCH (19:47)
[2024-03-25] MEDS ORDERED: lisinopril 10 MG TAB PO SCH (21:00)
[2024-03-25] MEDS ORDERED: lisinopril 5 MG TAB PO SCH (21:00)
[2024-03-26 06:31] LABS: Hematocrit (blood only) 40.4 % (37.0-47.0); Hemoglobin 13.7 g/dl (12.0-16.0); Mean Corpuscular Hgb Conc 33.9 g/dL (32.0-36.0); Mean Corpuscular Volume 85.6 fL (80.0-100.0); Platelet Count 233 K/uL (130-400); RDW Standard Deviation 40.4 fL (36.4-46.3); Red Blood Count 4.72 M/uL (4.20-5.40)
[2024-03-26 06:59] LABS: BUN Creatinine Ratio 23.5 (10-20); Calcium 8.8 mg/dl (8.6-10.3); Creatinine Clr Calc Pharmacy 115.2 ml/min; Est GFR (African American) 124.2 ml/min; Est GFR (Non-African American) 107.1 ml/min; Magnesium 2.1 mg/dl (1.7-2.4); Phosphorus 4.5 mg/dl (2.5-4.9); Potassium 3.8 mmol/L (3.5-5.1)
[2024-03-26 07:07] LABS: Estimated Average Glucose 100 mg/dl; Hemoglobin A1C 5.1 % (4.5-5.6)
[2024-03-26] MEDS: hydroCHLOROthiazide 25 MG TAB PO SCH (08:16)
[2024-03-26] MEDS: LORazepam 0.5 MG TAB PO PRN (10:51)
--- NOTE | 2024-03-26 12:34 | Cardiology Consultation ---
Date of Consultation March 26, 2024 Assessment & Plan (1) Rash: (2) Hypertensive crisis: (3) Chest pain: Plan Assessment: 43 year old female with acute onset of a itching rash of her face/neck/chest region while at work. Found to have hypertensive urgency with associated chest pain symptoms and admitted for further evaluation. Plan: 1. Rash -Etiology unclear. Possible exposure to something at work. 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 Denies any new ingestion, new meds, lotions, soaps, perfumes, detergents. No other COs developed symptoms. -question if her rash/urtica is perhaps secondary to a hypertensive response. -Continue to monitor. PRN Benadryl if needed. 2. Hypertensive Crisis 3. chest pain -chest tightness/pressure seems to be in conjunction with markedly elevated blood pressures. -EKG demonstrates NSR with no acute changes. Telemetry unremarkable and troponin negative. -Patient was on no prior anti-hypertensive therapies prior to admission. -Recommend that we continue Lisinopril 10mg BID, HCTZ 25mg Daily, and Norvasc 5mg HS. Continue to monitor closely. Will reassess response -Echo demonstrates normal LVEF but moderate LVH, mild MR -Discussed continued activity as tolerated. -Would recommend PRN dosing of IV hydralazine in the acute setting for SBP> 180 mmHg -Discussed patient's risk factors and echo findings, given her family history,her moderate LVH, hypertensive urgency and current symptoms, would recommend a Cardiac CT outpatient for further evaluation of her disease process. Case has been discussed with Dr. Avitia. Further recommendations regarding plan of care as per his assessment. I spent a total of 40 minutes on the date of service in preparation, delivery, documentation of the care provided to the patient excluding any time spent in the performance of separately billed services. LESIA Talley [facility] Cardiology [facility] Supervising Physician Co-Signing Physician Notes I have reviewed the advance practitioner's documentation, and I agree with, and take responsibility for the plan of care. I have personally performed a history and physical examination on the patient. 43 year old F with past medical history of HTN (not on any antihypertensives) presented to [facility] after having an allergic reaction at work to an unknown allergen. Her BP was checked at the time and it was noted to be >200 systolic and she was sent to the ED. She also was having chest pain. Her troponins were negative and ECG showed sinus rhythm with no acute ischemic changes. Echocardiogram don showed LVEF of 55-60%, moderate LVH, normal RV size and function, mild MR. She currently is resting comfortably. She denies dyspnea, orthopnea, PND, palpitations, or syncope. She states that her chest pain feels like a heaviness and more noticeable when her BP is elevated. She was started on Lisinopril 10mg BID, Norvasc 5mg PO daily and HCTZ mg PO daily (these were started last night and today). Her last BP was 139/100. We will see how her BP improves with the addition of these antihypertensives. Can consider adding PRN IV hydralazine for SBP>180. Her CTA of the chest showed no pulmonary embolism or dissection. She will need an ischemic evaluation at some (can be done as outpatient, Cardiac CT maybe a good option) but first needs good BP control. I spent a total of 60 minutes on the date of service in preparation, delivery, and documentation of the care provided to this patient, excluding any time spent in the performance of separately billed service History of Present Illness Reason for Consultation: "chest pain while ambulating"; hypertensive urgency Requesting Physician: Adriana reardon. Attending Physician: Emy Scherer MD History of Present Illness HPI: patient is a 43 year old female with PMHx significant for HTN, HLD, asthma, hepatic steatosis and CRIS. Prior tobacco use that initially presented to the ED from her place of employment ([employer]). She had noted an itchy rash on her head, chest and neck, started to develope some chest heaviness and dyspnea while walking down to be evaluated at the [facility]. Her SBP was noted to be in the 200's and she was sent to the ED for further evaluation. She did receive ASA and SL NTG en route to the ED with some relief. EKG demonstrates NSR with no acute ST-T wave changes. Chest xray negative for acute process. CTA negative for PE and no evidence of aortic dissection or other acute process. Troponin negative x3 on admission. Received a request for consultation because patient developed chest pain with ambulation. No EKG on file or stat troponin at time of event. Upon seeing patient today she is resting in bed without complaint. She states that her chest pain, described as a tightness and pressure had resolved as her blood pressure started to decrease. EKG ordered by cardiology demonstrates NSR with no acute changes. Stat Troponin negative. Echocardiogram was obtained at time of admission which shows normal LVEF, moderate concentric LVH, diastolic dysfunction, Grade II. Mild MR. Patient denies any personal history of cardiac disease outside of HTN and HLD. She reports that she was on Lisinopril years ago, but it was stopped due to low blood pressurs (under 100 systolic). she states that she tries to exercise regularly and does not note any significant symtpoms. She does not use tobacco, no illicit drugs, rare caffeine use. She reports that there is a strong family history of HTN, but only her grandparents have a history of FL with subsequent stents. Review of telemetry demonstrates NSR with no ectopy. Allergies Allergy/AdvReac Type Severity Reaction Status Date / Time cetirizine [From Zyrtec] Allergy Intermediate Rash Verified 03/24/24 21:22 latex Allergy Intermediate Rash Verified 03/24/24 21:22 loratadine [From Claritin-D] Allergy Intermediate Rash Verified 03/24/24 21:22 pseudoephedrine Allergy Intermediate Rash Verified 03/24/24 21:22 [From Claritin-D] Home Medications Medication Instructions Recorded Confirmed Type No Known Home Medications 03/24/24 03/24/24 History Patient History Medical History Slow to wake up after anesthesia Hypertension Asthma rare res inh use Surgical History History of hysterectomy Hx of breast reduction, elective History of colonoscopy History of cholecystectomy [place] teeth extracted History of tonsillectomy History of endoscopic sinus surgery Social History Smoking Status: Former smoker Tobacco Type: Cigarettes Cigarettes Per Day: does not use daily; Second Hand Exposure: No; Do You Dip or Chew Tobacco: No; Hx Alcohol Use: No Hx Substance Use: No Preferred Language: Finnish Communication Ability: Effective Gas Inspector Required: No Beliefs That Will Affect Care: None Current Living Situation: Alone Feels Safe at Home: Yes Safety Concerns: Feels Safe At This Time Assistive Devices: None Review of Systems Review of Systems: All systems reviewed & are unremarkable except as noted in HPI & below Physical Exam Constitutional: well developed and well nourished; no acute distress and not ill appearing Neck: normal visual inspection and trachea midline Respiratory: normal respiratory effort, lungs clear to auscultation Cardiovascular: RRR, no murmur, no edema Heart Sounds: normal S1 and normal S2; no murmur Vessels: dorsalis pedis pulses present; no JVD Extremities: no edema Skin: + rash (faint erythema noted in the neck lace line of her neck ) Psychiatric: A+Ox3, euthymic affect Results & Data Vital Signs (Past 12 Hours) Vital Signs Temp Pulse Pulse Resp BP BP Pulse Ox 03/26/24 12:01 139/100 03/26/24 10:38 60 14 159/119 H 161/124 H 97 03/26/24 09:55 80 153/116 H 03/26/24 08:00 35.8 C L 68 14 163/95 H 98 03/26/24 08:00 03/26/24 07:00 54 L 03/26/24 03:11 36.4 C L 51 L 15 138/91 97 Pulse Ox O2 Del Method O2 Del Method 03/26/24 12:01 03/26/24 10:38 Room Air 03/26/24 09:55 03/26/24 08:00 Room Air 03/26/24 08:00 98 Room Air 03/26/24 07:00 03/26/24 03:11 Room Air Laboratory Results Cardiac Enzymes 03/26/24 Range/Units 11:57 Troponin I High Sens 2.7 (0-14) pg/ml CBC 03/26/24 Range/Units 05:40 WBC 6.60 (4.8-10.8) K/ul RBC 4.72 (4.20-5.40) M/uL Hgb 13.7 (12.0-16.0) g/dl Hct 40.4 (37.0-47.0) % Plt Count 233 (130-400) K/uL Comprehensive Metabolic Panel 03/26/24 Range/Units 05:40 Sodium 139 (136-145) mmol/L Potassium 3.8 (3.5-5.1) mmol/L Chloride 106 (98-107) mmol/L Carbon Dioxide 28 (21-32) mmol/L BUN 16 (6-23) mg/dl Creatinine 0.68 (0.6-1.2) mg/dl Glucose 98 (70-99(Fasting)) mg/dl Calcium 8.8 (8.6-10.3) mg/dl Intake and Output 03/25/24 03/26/24 03/26/24 22:59 06:59 14:59 Intake Total 1450 / 1650 200 / 1650 Balance 1450 / 1650 200 / 1650 Intake: IV 1000 / 1000 Lactated Ringer's 1,000 ml @ 50 1000 / 1000 mls/hr IV .Q20H ONE Rx#: [id number] Oral 450 / 650 200 / 650 Other: # Unmeasured Voids 2 2 (3) Chest pain Chest pain type: unspecified Qualified Code(s): R07.9 - Chest pain, unspecified
--- NOTE | 2024-03-26 16:49 | Hospitalist Progress Note ---
Date of Service March 26, 2024 Assessment & Plan (1) Hypertensive crisis: (2) Rash: (3) Chest pain: Plan Pt is a 43yoF with PMHx significant for HTN, hyperlipidemia, bronchial asthma, hepatic steatosis, CRIS as per records, anxiety/mood disorder, past tobacco abuse, medical noncompliance as per records who presented from her job at a [employer] facility with concern for hypertensive urgency. Hypertensive Urgency BP as high as 253/159 on arrival EKG with NSR Trop wnl Echo noting Grade II diastolic dysfunction, mod LVH, EF 55-60% Precipitated by hypersensitivity reaction to unidentified allergen (pt presented with erythema of chest and neck), possible stressor component Untreated CRIS possibly contributory Mild CRIS on outpatient sleep study for which a CPAP titration study from 2017 Sleep medicine note. Per EPIC, pt previously on Lisinopril 20mg Has received IV hydralazine 10mg, po lisinopril 10mg and HCTZ 25mg with BP still elevated at 142/102 Continue with lisinopril 10mg BID while in the hospital (total dose 20mg) Will add amlodipine 5mg qhs, HCTZ 25mg qAM Consider discharge with lisinopril/HCTZ 20mg/25mg +/- amlodipine 5mg depending on BP response PRN Hydralazine 10mg ordered for SBP >180 PRN Ativan for stressor/anxiety component Continue to monitor Chest pain Pt with chest pain episode while ambulating hallway EKG with NSR round that time Cardiology consulted for further recommendations in this setting Appreciate recs Allergic Reaction hypersensitivity reaction to unidentified allergen (pt presented with erythema of chest and neck) Received Benadryl Continue with Benadryl prn hyperlipidemia not on maintenance medications Lipid panel noting elevated triglycerides Consider starting rx pending further discussion with pt Hypokalemia Replete as needed Hyperglycemia Glucose levels elevated hgba1c normal Continue to monitor bronchial asthma not in acute exacerbation anxiety/mood disorder stable off maintenance medications Continue to monitor Diet: HH DVT prophylaxis: Lovenox subcu Dispo: Home once medically stable Admission and Anticipated Discharge Date Admission Date: March 24, 2024 Subjective pt was seen while in the room with friend. Had an episode of chest pain/tightness while ambulating the [facility]. Denied associated SOB. Notes component of anxiety with daughter. Also at work states a particular shift makes her anxious/stressed as well as working with certain people. Review of Systems Review of Systems: All systems reviewed & are unremarkable except as noted in Subjective Physical Exam Physical Exam: General: Alert, oriented. No acute distress Skin: No noted rashes or bruises Psych: Appropriate mood and affect Neuro: No gross deficits while laying in bed HEENT: NC/AT CV: RRR Resp: no increased effort of breathing Abdomen: Soft, nontender, nondistended Extremities: No edema in lower extremities bilaterally. Results & Data Results & Data Vital Signs (Past 12 Hours) Vital Signs Temp Pulse Pulse Resp BP BP Pulse Ox 03/26/24 12:01 139/100 03/26/24 10:38 60 14 159/119 H 161/124 H 97 03/26/24 09:55 80 153/116 H 03/26/24 08:00 35.8 C L 68 14 163/95 H 98 03/26/24 08:00 03/26/24 07:00 54 L Pulse Ox O2 Del Method O2 Del Method 03/26/24 12:01 03/26/24 10:38 Room Air 03/26/24 09:55 03/26/24 08:00 Room Air 03/26/24 08:00 98 Room Air 03/26/24 07:00 (3) Chest pain Chest pain type: unspecified Qualified Code(s): R07.9 - Chest pain, unspecified
[2024-03-26] MEDS: hydrALAZINE HCL 20 MG/ML VIAL IV PRN (17:40)
[2024-03-27] MEDS: lisinopril 10 MG TAB PO STA (03:02)
--- OUTSIDE RECORDS SUMMARY | 2024-03-27 05:05 | External Medical Summary | Summary of Care ---
Author Name Unknown Organization [facility] Address [address] [facility] [place] [address] Phone [phone] Care Team Providers Care Visiting Nurse Name Role Phone Unavailable Primary Care Provider Unavailabl e Encounter Details Date Type Department Care Team (Late st Contact Info) Description 10/13/2023 Population Health External Data Unspecified Department Allergies Active Allergy Reactions Criticality Noted Date Comments Latex 07/10/2014 Loratadine Rash 12/23/2013 Pseudoephedrine High 06/22/2023 Rash Cetirizine Hcl Rash 12/23/2013 documented as of this encounter (statuses as of 10/13/2023) Medications Medication Sig Dispensed Refills Start Date End Date Status albuterol (PROVENTIL HFA) 108 (90 BASE) MCG/ACT inhaler Inhale 2 Puffs by mouth every 4 hours as needed for Dyspnea. 1 Inhaler 0 01/08/2019 Active fluticasone (FLONASE) 50 MCG/ACT nasal sprayIndications:Hi story of acute bronchitis with bronchospasm,Season al allergic rhinitis, unspecified trigger Administer 2 Sprays into each nostril daily. 11 g 2 02/13/2020 Active Additional Information Patient not taking.Reported on 11/07/2022 documented as of this encounter (statuses as of 10/13/2023) Active Problems Problem Noted Date Diagnosed Date Noncompliance 01/30/2020 Major depressive disorder, recurrent, unspecifie d 01/17/2020 Asthma with exacerbation 01/07/2019 Community acquired pneumonia due to Chlamydia sp ecies 01/07/2019 Acute stress reaction 10/28/2016 Anxiety 10/28/2016 Hepatic steatosis 10/28/2016 Insomnia 09/21/2015 Depression 09/21/2015 Borderline hyperlipidemia 03/16/2015 Obesity, Class II, BMI 35-39.9, isolated (see ac tual BMI) 03/16/2015 HTN, goal below 140/90 04/27/2014 documented as of this encounter (statuses as of 10/13/2023) Resolved Problems Problem Noted Date Diagnosed Date Resolved Date Flank pain 10/20/2016 02/02/2020 Chest pain 10/20/2016 02/02/2020 Large breasts 03/16/2015 09/21/2015 Irritant dermatitis 03/16/2015 09/21/20 15 Candidal intertrigo 03/16/2015 09/21/20 15 Renal artery obstruction 04/27/201403/2014 Renal artery obstruction 02/06/201403/2014 Pain 02/06/2014 09/21/2015 documented as of this encounter (statuses as of 10/13/2023) Immunizations Name Administration Dates Next Due PPD 07/07/2016 Pneumococcal Polysaccharide PPV23 (Pneumovax) SEASONAL INFLUENZA, PF, 6 M & Above, IM , (FLULAVAL or FLUZONE) 08/17/2019 Seasonal Influenza, Split, IIV3, With Preserve, Inj 09/01/2015 TDAP (age 10 and older)(Boostrix) 09/21/2015 documented as of this encounter Social History Tobacco Use Types Packs/Day Years Used Date Smoking Tobacco: Former Cigarettes Smokeless Tobacco: Never Alcohol Use Standard Drinks/Week Comments No 0 (1 standard drink = 0.6 oz pur e alcohol) occassionally AUDIT-C Answer Date Recorded Frequency of Alcohol Consumption Never 01/07/2019 Average Number of Drinks Not on file 019 Frequency of Binge Drinking Not on file 12/24 PHQ-2 Answer Date Recorded PHQ-2 Score 1 01/17/2020 Hunger Vital Sign Answer Date Recorded Worried About Running Out of Food in the Last Ye ar Never true 01/17/2020 Ran Out of Food in the Last Year Never true 01/17/2020 Sex and Gender Information Value Date Recorded Sex Assigned at Not on file Gender Identity Not on file Sexual Orientation Not on file Job Start Date Occupation Industry Not on file Not on file Not on file documented as of this encounter Functional Status Functional Status Response Date of Assess ment Are you deaf or do you have serious difficulty h earing? No 01/07/2019 Are you blind or do you have serious difficulty seeing, even when wearing glasses? No 01/07/2019 Do you have serious difficul ty walking or climbing stairs? (5 years old or older) No 01/07/2019 Do you have difficulty dress ing or bathing? (5 years old or older) No 01/07/2019 Because of a physical, menta l, or emotional condition, do you have difficulty doing errands alone such as visiting a doctor s office or shopping? (15 years old or older) No 01/07/20 19 Cognitive Status Response Date of Assessm ent Because of a physical, menta l, or emotional condition, do you have serious difficulty concentrating, remembering, or making decisions? (5 years old or older) No 01/07/2019 documented as of this encounter Plan of Treatment Health Maintenance Due Date Last Done Comments Hepatitis B (1 of 3 - 3-dose series) 1980 COVID-19 Vaccine (#1) 06/17/1981 HIV Screening 1995 Hepatitis C Screening 1998 Albumin/Creatinine Ratio 01/25/2017 01/25/2014 Mammogram 2020 Depression Screening 01/17/2021 01/17/2020 Pneumococcal Vaccine: Pediatrics (0 to 5 Years) and At-Risk Patients (6 to 64 Years) (2 - PCV) 01/17/2021 01/17/2020 Lipid Panel 04/24/2021 04/24/2016, 03/12/2015 Influenza Vaccine (FLU shot) (#1) 2023 08/17/2019, 09/01/2015 GFR 06/19/2024 06/19/2023, 09/24, 10/14/2020, Additional history exists DTaP,Tdap,and Td Vaccines (2 - Td or Tdap) 09/21/2025 09/21/2015 Diabetes Screening 06/19/2026 06/19/2023, 1 12/19/2019, 10/14/2020, Additional history exists GARDASIL-HPV IMMUNIZATION SERIES Aged Out No longer eligible based on patient's age to complete this topic MENINGOCOCCAL (MENACTRA/MENVEO) Aged Out No longer eligible based on patient's age to complete this topic documented as of this encounter Medical Devices Not on filedocumented as of this encounter Advance Directives Latest Code Status on File Code Status Date Activated Date Inactivated Comments Full Code 01/07/2019 12:41 PM 01/08/2019 5:04 PM This order reflects the patients wishes and were consensually agreed upon. Code Status History Code Status Date Activated Date Inactivated Comments Full Code 10/18/2016 4:20 AM 10/20/2016 8:25 PM Thi s order reflects the patients wishes and were consensually agreed upon. Full Code 08/31/2015 3:32 PM 09/03/2015 3:27 PM This order reflects the patients wishes and were consensually agreed upon. Question Answer Comments Discussion of Advance Directives occurred with: Not Discussed
[2024-03-27 05:56] LABS: Hematocrit (blood only) 43.6 % (37.0-47.0); Hemoglobin 14.7 g/dl (12.0-16.0); Mean Corpuscular Hemoglobin 29.2 pg (25.0-34.0); Mean Corpuscular Hgb Conc 33.7 g/dL (32.0-36.0); Mean Corpuscular Volume 86.7 fL (80.0-100.0); Mean Platelet Volume 10.4 fL (9.4-12.4); Platelet Count 243 K/uL (130-400); RDW Coefficient of Variation 13.2 % (11.5-14.5); RDW Standard Deviation 40.8 fL (36.4-46.3); Red Blood Count 5.03 M/uL (4.20-5.40); White Blood Count 7.39 K/ul (4.8-10.8)
[2024-03-27 06:23] LABS: BUN Creatinine Ratio 24.7 (10-20); Creatinine Clr Calc Pharmacy 92.1 ml/min; Est GFR (African American) 97.3 ml/min; Est GFR (Non-African American) 83.9 ml/min; Magnesium 2.2 mg/dl (1.7-2.4); Phosphorus 4.6 mg/dl (2.5-4.9); Potassium 4.2 mmol/L (3.5-5.1)
[2024-03-27 06:37] LABS: Troponin I High Sensitivity 7.1 pg/ml (0-14)
--- NOTE | 2024-03-27 07:25 | Cardiology Progress Note ---
Date of Service March 27, 2024 Assessment & Plan (1) Rash: (2) Hypertensive crisis: (3) Chest pain: Plan Assessment: 43 year old female with acute onset of a itching rash of her face/neck/chest region while at work. Found to have hypertensive urgency with associated chest pain symptoms and admitted for further evaluation. Plan: 1. Rash -Etiology unclear. Possible exposure to something at work. 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 Denies any new ingestion, new meds, lotions, soaps, perfumes, detergents. No other COs developed symptoms. -question if her rash/urtica is perhaps secondary to a hypertensive response. -Continue to monitor, Benadryl PRN 2. Hypertensive Crisis 3. chest pain -chest tightness/pressure seems to be in conjunction with markedly elevated blood pressures. -EKG demonstrates NSR with no acute changes. Telemetry unremarkable and troponin negative. -Patient was on no prior anti-hypertensive therapies prior to admission. -Recommend that we continue Lisinopril 10mg BID, HCTZ 25mg Daily, and Norvasc 5mg HS. Continue to monitor closely. Will reassess response -Echo demonstrates normal LVEF but moderate LVH, mild MR -Discussed continued activity as tolerated. -Would recommend PRN dosing of IV hydralazine in the acute setting for SBP> 180 mmHg -Discussed patient's risk factors and echo findings, given her family history,her moderate LVH, hypertensive urgency and current symptoms, would recommend a Cardiac CT outpatient for further evaluation of her disease process. 03/27/2024: patient is doing well overall. Upon exam this morning, asymptomatic and BP controlled. Alerted this afternoon, BP had spiked again. Give an Ad ditional Amlodipine 5mg now (total 10mg in past 24 hours), and increase Amlodipine to 10mg PO Daily. Continue HCTZ 25mg PO Daily, and Lisinopril 10mg BID. Recheck BP 4 hours after additional dose of Amlodipine today. If BP is controlled, patient may be discharged. Will need close cardiology follow up within 2-4 weeks. OP labs in one week. Case has been discussed with Dr. Avitia. Further recommendations regarding plan of care as per his assessment. I spent a total of 30 minutes on the date of service in preparation, delivery, documentation of the care provided to the patient excluding any time spent in the performance of separately billed services. LESIA Talley [facility] Admission and Anticipated Discharge Date Admission Date: March 24, 2024 Supervising Physician Co-Signing Physician Notes I have reviewed the advance practitioner's documentation, and I agree with, and take responsibility for the plan of care. I have personally performed a history and physical examination on the patient. Patient feeling much better today. Has not had any recurrence of chest discomfort. Her blood pressure is much better controlled today at 140/94. Patient can follow-up with cardiology as an outpatient in 1 to 2 weeks for an ischemic evaluation at some point, cardiac CT may be a good option. Patient advised to monitor her blood pressure at home. I spent a total of 30 minutes on the date of service in preparation, delivery, and documentation of the care provided to this patient, excluding any time spent in the performance of separately billed service Subjective Patient seen and examined in follow up today. Feeling well overall. She has not been out of bed yet today to ambulate. Denies any chest pain, pressure, palpitations, shortness of breath, PND, pre-syncope or syncope. BP demonstrated excellent control this morning, post lunch, patient's BP spiked again 148/119 Labs, vitals, diagnostics, telemetry and documentation reviewed. Telemetry reviewed showing SR rates 70's no acute events overnight. Review of Systems Review of Systems: All systems reviewed & are unremarkable except as noted in HPI & below Physical Exam Constitutional: well developed and well nourished; no acute distress and not ill appearing Neck: normal visual inspection and trachea midline Respiratory: normal respiratory effort, lungs clear to auscultation Cardiovascular: RRR, no murmur, no edema Heart Sounds: normal S1 and normal S2; no murmur Vessels: dorsalis pedis pulses present; no JVD Extremities: no edema Skin: + rash (faint erythema noted in the neck lace line of her neck ) Psychiatric: A+Ox3, euthymic affect Results & Data Vital Signs (Past 12 Hours) Vital Signs Temp Pulse Pulse Resp BP Pulse Ox O2 Del Method 03/27/24 04:14 122/72 03/27/24 02:40 36.9 C 59 L 18 157/112 H 96 Room Air 03/26/24 23:00 70 03/26/24 22:48 36.7 C 69 19 143/112 H 96 Room Air 03/26/24 20:46 36.8 C 81 18 148/93 H 95 Room Air Laboratory Results Cardiac Enzymes 03/27/24 Range/Units 05:34 Troponin I High Sens 7.1 D (0-14) pg/ml CBC 03/27/24 Range/Units 05:34 WBC 7.39 (4.8-10.8) K/ul RBC 5.03 (4.20-5.40) M/uL Hgb 14.7 (12.0-16.0) g/dl Hct 43.6 (37.0-47.0) % Plt Count 243 (130-400) K/uL Comprehensive Metabolic Panel 03/27/24 Range/Units 05:34 Sodium 138 (136-145) mmol/L Potassium 4.2 (3.5-5.1) mmol/L Chloride 104 (98-107) mmol/L Carbon Dioxide 27 (21-32) mmol/L BUN 21 (6-23) mg/dl Creatinine 0.85 (0.6-1.2) mg/dl Glucose 102 H (70-99(Fasting)) mg/dl Calcium 9.0 (8.6-10.3) mg/dl Intake and Output 03/26/24 03/27/24 03/27/24 22:59 06:59 14:59 Intake Total 100 / 780 200 / 780 Balance 100 / 780 200 / 780 Intake: Oral 100 / 780 200 / 780 Other: # Unmeasured Voids 1 (3) Chest pain Chest pain type: unspecified Qualified Code(s): R07.9 - Chest pain, unspecified
[2024-03-27] MEDS: amLODIPine BESYLATE 5 MG TAB PO ONE (13:29)
--- NOTE | 2024-03-27 13:32 | Discharge Summary ---
Discharge Summary Date of Service March 27, 2024 Notes For Next Care Provider Please ensure followup with Cardiology. Per Cardiology, will need Cardiac CT oupt Medication Changes From Visit Lisinopril 10mg BID HCTZ 25mg daily Amlodipine 10mg daily Albuterol inhaler Admission HPI Per Admitting Provider History obtained from patient, family, and records. Medical history significant for HTN, hyperlipidemia, bronchial asthma, hepatic steatosis, CRIS as per records, anxiety/mood disorder, past tobacco abuse, medical noncompliance as per records. 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 Not sure about precipitant of allergic reaction. Patient experience achy chest heaviness with shortness of breath at the [employer]. SBP noted to be 200s. Denies headache, cough, nausea, vomiting symptoms. Mild abdominal discomfort from being hungry as per patient. Patient denies unusual stress at home. Patient claims she was told by PCP to stop lisinopril about 2 years ago because her blood pressure was low as 90-100. Symptoms relieved by aspirin and nitroglycerin administration by EMS. Medical History as above Surgical History : Hysterectomy, dental surgery, breast reduction Family History : Hypertension Personal/Social history : Past tobacco abuse, no EtOH intake, armed security officer Admission Exam Per Admitting Provider GENERAL: Comfortable, obese, slightly anxious, no respiratory distress SKIN: Normal color, warm HEENT: [place] palpebral conjunctivae, no ptosis, dry buccal mucosa NECK : Supple, short neck, no tenderness CHEST : CTA, no tenderness HEART : RRR, no obvious murmurs ABDOMEN: Some distention, nontender EXTREMITIES : Minimal LE swelling, no LE tenderness, no other conspicuous deformities noted NEUROLOGIC : Coherent, no facial asymmetry, no other gross focality Principal Dx & Hospital Course #1 = Principal Diagnosis (1) Hypertensive crisis: (2) Rash: (3) Chest pain: Plan Pt is a 43yoF with PMHx significant for HTN, hyperlipidemia, bronchial asthma, hepatic steatosis, CRIS as per records, anxiety/mood disorder, past tobacco abuse, medical noncompliance as per records who presented from her job at a [employer] facility with concern for hypertensive urgency. Hypertensive Urgency BP as high as 253/159 on arrival EKG with NSR Trop wnl Echo noting Grade II diastolic dysfunction, mod LVH, EF 55-60% Precipitated by hypersensitivity reaction to unidentified allergen (pt presented with erythema of chest and neck), possible stressor component Untreated CRIS possibly contributory Mild CRIS on outpatient sleep study for which a CPAP titration study from 2017 Sleep medicine note. Per EPIC, pt previously on Lisinopril 20mg Has received IV hydralazine 10mg, po lisinopril 10mg and HCTZ 25mg with BP still elevated at 142/102 Continue with lisinopril 10mg BID while in the hospital (total dose 20mg) Was also treated with amlodipine 5mg qhs, HCTZ 25mg qAM Cardiology was consulted, recommended the following: -chest tightness/pressure seems to be in conjunction with markedly elevated blood pressures. -EKG demonstrates NSR with no acute changes. Telemetry unremarkable and troponin negative. -Continue Lisinopril 10mg BID, HCTZ 25mg Daily, and Norvasc 10mg daily -Echo demonstrates normal LVEF but moderate LVH, mild MR PRN Hydralazine 10mg ordered for SBP >180 PRN Ativan for stressor/anxiety component BP was 137/91 on discharge Close cardiology and pcp followup after discharge Chest pain Pt with chest pain episode while ambulating hallway EKG with NSR round that time Cardiology consulted for further recommendations, recommended the following: -chest tightness/pressure seems to be in conjunction with markedly elevated blood pressures. -EKG demonstrates NSR with no acute changes. Telemetry unremarkable and troponin negative. -continue Lisinopril 10mg BID, HCTZ 25mg Daily, and Norvasc 10mg daily -Given patient's risk factors and echo findings, given her family history,her moderate LVH, hypertensive urgency and current symptoms, would recommend a Cardiac CT outpatient for further evaluation of her disease process. Close Cardiology and PCP follow up after discharge Allergic Reaction hypersensitivity reaction to unidentified allergen (pt presented with erythema of chest and neck) Received Benadryl Continue with Benadryl prn hyperlipidemia not on maintenance medications Lipid panel noting elevated triglycerides Discharged with low dose atorvastatin Hypokalemia Replete as needed Hyperglycemia Glucose levels elevated [id number] normal Continue to monitor bronchial asthma not in acute exacerbation Discharged with albuterol inhaler anxiety/mood disorder stable off maintenance medications Continue to monitor Discharge Exam General: Alert, oriented. No acute distress Skin: No noted rashes or bruises Psych: Appropriate mood and affect Neuro: No gross deficits while laying in bed HEENT: NC/AT CV: RRR Resp: no increased effort of breathing Abdomen: Soft, nontender, nondistended Extremities: No edema in lower extremities bilaterally. Updated Medication List Medication Instructions Recorded Confirmed Type albuterol sulfate 90 mcg/actuation 2 inh inhalation Q8H PRN shortness 03/27/24 Rx aerosol inhaler of breath or wheezing #8.5 grams amlodipine 5 mg tablet (Norvasc) 10 mg (2 x 5 mg) PO QAM #60 tabs 03/27/24 Rx atorvastatin 20 mg tablet 20 mg PO DAILY #30 tabs 03/27/24 Rx hydrochlorothiazide 25 mg tablet 25 mg PO QAM #30 tabs 03/27/24 Rx lisinopril 10 mg tablet 10 mg PO BID #60 tabs 03/27/24 Rx Hospital Stay Data Consultations 03/26/24 10:29 Consult Cardiology Routine Diagnostic Imagining Performed 03/24/24 19:58 CT angio chest dissec wo/w con Stat Chest X-Ray 03/24/24 19:07 XR chest 1V portable HISTORY: 43 years-old Female Chest pain, nonspecific COMPARISON: CTA chest of same day TECHNIQUE: AP view of the chest FINDINGS: Cardiomediastinal and hilar silhouettes are within normal limits. There is no pneumothorax, pleural effusion, airspace consolidation or pulmonary edema. The bones of the chest appear grossly intact. IMPRESSION: No acute process. ACT 112: Negative or not required by law. The above report was generated using voice recognition software. It may contain grammatical, syntax or spelling errors. Electronically signed by: George Sol M.D. 03/25/2024 7:25 AM Chest CTA 03/24/24 19:58 Exam(s): CTA CHEST W/WO Contrast IV Amt: 118 ml optiray 320 EXAM: CT Angiography Chest Without and With Intravenous Contrast CLINICAL HISTORY: Reason for exam: chest pain, htn. TECHNIQUE: Axial computed tomographic angiography images of the chest without and with intravenous contrast. CTDI is 20.66 mGy and DLP is 1286.71 mGy-cm. Automated exposure control was utilized for the study. A dose lowering technique was utilized adhering to the principles of ALARA. MIP reconstructed images were created and reviewed. CONTRAST: Patient received 118 ml optiray 320 of IV contrast COMPARISON: No relevant prior studies available. FINDINGS: Pulmonary arteries: Unremarkable. No pulmonary embolism. Aorta: No acute findings. No thoracic aortic aneurysm. Lungs: Unremarkable. No mass. No consolidation. Pleural space: Unremarkable. No significant effusion. No pneumothorax. Heart: Unremarkable. No cardiomegaly. No significant pericardial effusion. No evidence of RV dysfunction. Bones/joints: No acute fracture. No dislocation. Soft tissues: Unremarkable. Lymph nodes: Unremarkable. No enlarged lymph nodes. IMPRESSION: Normal chest CTA. No pulmonary embolism. No evidence of thoracic aortic aneurysm or dissection. Electronically signed by: Martin Meyer MD 03/24/24 21:29 PM Discharge Instructions Given to Patient (Per Discharging Provider) Devi You were seen by the Clean Energy Policy Analyst for very high blood pressures and associated chest pain. They recommended discharge home with the medications listed below. You are also requesting an inhaler to use at home which we sent for you. Cardiology is recommending that you follow up with them in 1-2 weeks and that you will need outpatient follow up with a cardiac CT. Also started you on a low dose statin to help your cholesterol levels. Dietary changes and exercise are encouraged to help as well. Please keep close followup with Cardiology after discharge. Please keep close follow up with your primary care provider after discharge. We will help you set that appointment up. Please do not hesitate to come back to the emergency room if your symptoms worsen or return. It was a pleasure taking care of you while you were here. Total Time Total Time Spent Total Time Spent (In Minutes): 45
[2024-03-27] MEDS ORDERED: lisinopril 10 MG TAB PO SCH (21:00)
--- NOTE | 2024-03-27 21:32 | Electrocardiogram Report ---
Test Reason : Blood Pressure : / mmHG Vent. Rate : 071 BPM Atrial Rate : 071 BPM P-R Int : 176 ms QRS Dur : 096 ms QT Int : 380 ms P-R-T Axes : 049 019 -05 degrees QTc Int : 412 ms Normal sinus rhythm Nonspecific ST and T wave abnormality Abnormal ECG No previous ECGs available Confirmed by Tam Kulkarni ([id number]) on 03/27/2024 9:31:44 PM Referred By: REFERRED SELF Confirmed By:Tam Kulkarni
--- NOTE | 2024-03-27 22:29 | Electrocardiogram Report ---
Test Reason : Blood Pressure : / mmHG Vent. Rate : 063 BPM Atrial Rate : 063 BPM P-R Int : 168 ms QRS Dur : 094 ms QT Int : 410 ms P-R-T Axes : 047 029 019 degrees QTc Int : 419 ms Normal sinus rhythm with sinus arrhythmia Normal ECG When compared with ECG of 24-MAR-2024 18:55, (unconfirmed) Nonspecific T wave abnormality no longer evident in Anterolateral leads Confirmed by Tam Kulkarni ([id number]) on 03/27/2024 10:29:18 PM Referred By: REFERRED SELF Confirmed By:Tam Kulkarni
[2024-03-28] MEDS ORDERED: amLODIPine BESYLATE 5 MG TAB PO SCH (09:00)
== END 2024-03-27 18:16 | disposition home or self-care (01) ==
LOC: EDINP 18:48 → ED 18:48 → SUATTDRO 23:52 → 2E 03-25 06:36